=== PATIENT | male | born 1960 ===

== ENCOUNTER → 2019-11-05 | Outpatient (CLI) | payer OTHER ==
--- NOTE | 2019-11-05 17:25 | Diagnostic Imaging Report ---
Clinical Indication: Reason For Exam: MASS Technique: Patient ingested oral contrast. Precontrast spiral acquisitions obtained through the abdomen and pelvis. IV administration nonionic contrast. Multiphasic spiral acquisitions obtained through the abdomen and pelvis. Multiplanar reconstructions were generated. Total dose length product 4021 mGycm. CTDIvol(s) 77 mGy. Dose reduction achieved using automated exposure control Comparison: none Findings: Left kidney demonstrates a 9 mm lesion in the lower pole which demonstrates fluid attenuation, consistent with a benign simple cortical cysts. Right kidney demonstrates a subcentimeter low-attenuation lesion in the interpolar region which is too small to characterize. No definite solid mass demonstrated in either kidney. Both renal collecting systems appear unremarkable. The ureters are unremarkable. The bladder is unremarkable. The prostate is very slightly prominent. The seminal vesicles are unremarkable. No renal or ureteral calculi are demonstrated. The liver, gallbladder, bile ducts, pancreas, spleen, adrenals are unremarkable. No retroperitoneal or mesenteric mass or adenopathy. No pelvic mass or adenopathy. There are colonic diverticula. No evidence of diverticulitis. The appendix is normal. No small bowel distention. Contrast has traversed the entirety of the small bowel in the entirety of the colon. No small bowel wall thickening. No free or loculated intraperitoneal gas or fluid. Distal esophagus, stomach, duodenum are unremarkable. There is evidence of prior anterior pelvic wall surgery. There is a small fat-containing left inguinal hernia. The included lung bases are clear. The bones demonstrate mild degenerative spondylosis changes. Impression: Left renal cyst. Right renal subcentimeter low-attenuation lesion which is too small to characterize, most likely benign simple cyst. No solid renal mass demonstrated. No other urinary tract abnormality Colonic diverticulosis. No evidence of diverticulitis. Incidental findings of prior anterior pelvic wall surgery, small fat-containing left inguinal hernia, mild degenerative spondylosis The CT scanner at [facility] is accredited by the [employer] and the scans are performed using protocols designed to limit radiation exposure to as low as reasonably achievable to attain images of sufficient resolution adequate for diagnostic evaluation.
== END | disposition home or self-care (01) ==
LOC: CAT 08:52
DX: N28.1 Cyst of kidney, acquired (principal); K57.90 Diverticulosis of intestine, part unspecified, without perforation or abscess without bleeding; K40.90 Unilateral inguinal hernia, without obstruction or gangrene, not specified as recurrent; M47.9 Spondylosis, unspecified
CPT/HCPCS: 74178; Q9967